=== PATIENT | female | born 1970 | race Caucasian/White ===

== ENCOUNTER 2016-08-28 14:35 | Outpatient (CLI) ==
--- NOTE | 2016-08-28 15:35 | CT ---
EXAM: CT of the abdomen pelvis with contrast History: Right inguinal groin mass. Comparison: CT abdomen pelvis 06/11/2011 Technique: Multiplanar CT images through the abdomen pelvis were obtained following administration of IV contrast Findings: Calcified granuloma within the right lower lobe. Lung bases are free of consolidation. N o acute osseous abnormalities. No discrete gallstones identified by CT. A few small stable low-density liver lesions are most like ly cysts. The liver is fatty. Spleen is unremarkable. Pancreas is unremarkable. Adrenal glands a re unremarkable. No renal masses. The appendix is not dilated or inflamed. No bowel obstruction. No bladder wall thickening. No free air. Most of the colon is not well distended but there is no pericolonic inflammation. No pathologically enlarged lymph nodes. There are a few small benign lym ph nodes within the right groin. No fluid collections. Uterus is not seen. Tiny fat containing umbi lical hernia Impression: 1. No acute intra-abdominal or pelvic process. 2. No abnormality within the right groin. 3. Stable small hepatic cysts. 4. Hepatic steatosis.
== END 2016-08-28 14:36 | disposition home or self-care (01) ==
LOC: RAD 14:35
PROVIDERS: ATTEND Family Medicine
DX: R19.09 Other intra-abdominal and pelvic swelling, mass and lump (principal)

== ENCOUNTER 2017-02-14 11:37 | Outpatient (CLI) ==
--- NOTE | 2017-02-14 13:12 | DI ---
EXAM: Radiographs, left foot HISTORY: Left foot pain. Injury 2 months prior. COMPARISON: None available. TECHNIQUE: Three views. FINDINGS: Bone mineralization is normal. There is no fracture or dislocation. The joint spaces are maintained. A moderate-sized plantar calcaneal spur is present. There is a tiny retrocalcaneal spu r at the Achilles tendon insertion. No focal soft tissue abnormality is seen. IMPRESSION: 1. No fracture or dislocation. 2. Calcaneal spurs.
== END 2017-02-14 11:38 | disposition home or self-care (01) ==
LOC: RAD 11:37
PROVIDERS: ATTEND Family Medicine
DX: M79.672 Pain in left foot (principal)

== ENCOUNTER 2017-06-06 07:49 | Outpatient (CLI) ==
--- NOTE | 2017-06-06 09:18 | CT ---
EXAM: CT abdomen pelvis without contrast HISTORY: Back and flank pain COMPARISON: 08/28/2016 TECHNIQUE: CT abdomen pelvis performed without intravenous contrast. Coronal and sagittal reformatt ed images obtained. FINDINGS: Granulomatous calcification. No free air. No acute abnormalities of the bones. Degenera tive change in the spine. Heart normal in size. Evaluation organ parenchyma limited without contras t. Liver diffusely decreased in attenuation. Liver is enlarged. Small stable hypodensities in the l iver. Gallbladder appears normal. Pancreas appears normal. Spleen appears normal. Adrenals appear normal. Aorta normal in caliber. Mild atherosclerosis. Patient status post hysterectomy. No lymph adenopathy or ascites. Minimal fat-containing ventral hernia. Stomach appears normal. No dilated l oops small bowel. Appendix appears normal. Colon unremarkable. No hydronephrosis or nephrolithiasi s. No calculi visualized in normal course of the ureters. Bladder unremarkable. IMPRESSION: 1. No hydronephrosis or nephrolithiasis. 2. No acute abnormality identified in the abdomen or pelvis. 3. Hepatic steatosis. Hepatomegaly. 4. Degenerative change in the spine.
== END 2017-06-06 07:50 | disposition home or self-care (01) ==
LOC: RAD 07:49
PROVIDERS: ATTEND Family Medicine
DX: M54.5 Low back pain (principal); R10.9 Unspecified abdominal pain
CPT/HCPCS: 74176

== ENCOUNTER 2018-05-20 14:43 | Outpatient (CLI) ==
--- NOTE | 2018-05-20 15:42 | DI ---
EXAM: Lumbar spine three view HISTORY: Low back pain COMPARISON: None TECHNIQUE: Three views lumbar spine were performed, including oblique views FINDINGS: Sacroiliac joints intact. Sacral arcuate intact. No acute fracture. Minimal chronic los s of height L1 with associated Schmorl's node formation. Small multilevel marginal osteophyte format ion. Intervertebral disc spaces maintained. Mild atherosclerotic vascular calcification. IMPRESSION: 1. Mild chronic discogenic degenerative disease. 2. Minimal chronic loss of height L1 with associated Schmorl's node formation.
== END 2018-05-20 14:44 | disposition home or self-care (01) ==
LOC: RAD 14:43
PROVIDERS: ATTEND Family Medicine
DX: M54.5 Low back pain (principal)